=== PATIENT | male | born 2000 | race Caucasian/White ===

== ENCOUNTER 2021-02-05 09:49 | Emergency (ER) | payer OTHER, SELFPAY ==
[~2021-02-05] VITALS: Ht 175.3 cm; Wt 59.0 kg
[2021-02-05 09:58] VITALS: BP 102/62
--- NOTE | 2021-02-05 10:00 | NUR ---
PT TO AWAIT IN TENT
--- NOTE | 2021-02-05 10:26 | NUR ---
DR SMITH EXAMINING PT IN TENT
[2021-02-05] MEDS ORDERED: PENI500T20 PO (10:40)
[2021-02-05] MEDS ORDERED: PHEN177S23 PO (10:40)
--- NOTE | 2021-02-05 10:49 | NUR ---
no nursing interventions given
[2021-02-05 10:50] VITALS: BP 102/62
--- NOTE | 2021-02-05 10:51 | NUR ---
Patient discharged with v/s stable. Written and verbal after care instructions given and explained. Patient alert, oriented and verbalized understanding of instructions. Ambulatory with steady gait. All questions addressed prior to discharge. ID band removed. Patient advised to follow up with PMD. Rx of penicillin and phenol given. Patient educated on indication of medication including possible reaction and side effects. Opportunity to ask questions provided and answered.
== END 2021-02-05 10:51 | disposition home or self-care (01) ==
LOC: MED 09:49
DX: J03.80 Acute tonsillitis due to other specified organisms (principal); R19.7 Diarrhea, unspecified
CPT/HCPCS: 99283

== ENCOUNTER 2021-02-14 08:19 | Emergency (ER) | payer SELFPAY ==
[~2021-02-14] VITALS: Ht 175.3 cm; Wt 59.0 kg
[~2021-02-14 08:19] MED LIST: PENI500T20 PO; PHEN177S23 PO
[2021-02-14 08:30] VITALS: BP 110/72
--- NOTE | 2021-02-14 08:40 | NUR ---
PATIENT PRESENTS FOR A WORK NOTE TO BE CLEARED TO GO BACK TO WORK AFTER BEING SEEN ON 02/05 FOR TONSILLITIS. DENIES ANY FURTHER S&S AT THIS TIME.
[2021-02-14 09:26] VITALS: BP 110/72
--- NOTE | 2021-02-14 09:27 | NUR ---
Patient discharged with v/s stable. Written and verbal after care instructions given and explained. Patient verbalized understanding. Ambulatory with steady gait. All questions addressed prior to discharge. Advised to follow up with PMD.
== END 2021-02-14 09:27 | disposition home or self-care (01) ==
LOC: MED 08:19
DX: J02.9 Acute pharyngitis, unspecified (principal); Z79.899 Other long term (current) drug therapy
CPT/HCPCS: 99281